=== PATIENT | female | born 1965 ===

== ENCOUNTER 2018-06-21 12:26 | Inpatient (IN) | payer OTHER ==
[2018-06-21 12:26] VITALS: BMI 39.9
[2018-06-21] MEDS ORDERED: Sodium Chloride 0.9% 1,000 ML IV STA ×2 (12:43→15:54)
[2018-06-21 13:34] LABS: BASO # 0.01 K/mm3 (0.0-2.0); BASO % 0.1 % (0.0-3.0); EOS % 0.4 % (1.5-5.0); GRAN # 8.28 (1.4-6.5); HEMOGLOBIN 14.5 g/dL (12.0-16.0); LYMPH # 0.8 (1.2-3.4); LYMPH % 8.3 % (22.0-35.0); MEAN CELL VOLUME 88.3 fl (80.0-105.0); MEAN CORPUSCULAR HEMOGLOBIN 30.3 pg (25.0-35.0); MEAN CORPUSCULAR HGB CONC 34.3 g/dl (31.0-37.0); MEAN PLATELET VOLUME 8.8 fl (7.0-11.0); MONO # 0.7 (0.1-0.6); MONO % 7.2 % (1.0-6.0); RBC 4.79 10^6/uL (3.5-6.1); RED CELL DISTRIBUTION WIDTH 13.3 % (11.5-14.5); WHITE BLOOD COUNT 9.9 10^3/uL (4.5-11.0)
[2018-06-21 13:35] LABS: VENOUS BLOOD GAS BASE EXCESS 2.8 mmol/L (0.0-2.0); VENOUS BLOOD GAS PO2 69 mm/Hg (30-55); VENOUS BLOOD PH 7.44 (7.32-7.43)
[2018-06-21 13:44] LABS: ALB/GLOB RATIO 1.2 (1.1-1.8); ALBUMIN 4.3 g/dL (3.0-4.8); BLOOD UREA NITROGEN 13 mg/dL (7-21); GFR NON-AFRICAN AMERICAN > 60; LIPASE 78 U/L (23-300)
[2018-06-21 13:47] LABS: ALT/SGPT 48 U/L (7-56); AST/SGOT 38 U/L (14-36)
[2018-06-21 14:02] LABS: TROPONIN I < 0.01 ng/mL
--- NOTE | 2018-06-21 14:51 | CT ---
Date of service: 06/21/2018 PROCEDURE: CT Abdomen and Pelvis with contrast HISTORY: abd pain COMPARISON: Comparison is made with 01/21/2013 TECHNIQUE: Contrast dose: 150 mL of Omnipaque 350 intravenously. Axial and reformatted coronal and sagittal CT images of the abdomen and pelvis were obtained after IV contrast administration. Radiation dose: Total exam DLP = 1064.8 mGy-cm. This CT exam was performed using one or more of the following dose reduction techniques: Automated exposure control, adjustment of the mA and/or kV according to patient size, and/or use of iterative reconstruction technique. FINDINGS: LOWER THORAX: No evidence of acute pathology at the lung bases. LIVER: Hepatomegaly with findings suggestive of [id number] hepatic steatosis. GALLBLADDER AND BILE DUCTS: No evidence of acute cholecystitis or radiodense gallstones. PANCREAS: Unremarkable. No gross lesion or ductal dilatation. SPLEEN: The spleen is prominent in size measures up to 12.4 centimeter. ADRENALS: Unremarkable. No mass. KIDNEYS AND URETERS: Unremarkable. No hydronephrosis. No solid mass. VASCULATURE: Unremarkable. No aortic aneurysm. No aortic atherosclerotic calcification or mural plaque present. BOWEL: Suspicious for cecal and ascending colon wall thickening. Correlate clinically for colitis. No evidence of high-grade bowel obstruction. APPENDIX: No evidence of appendicitis. PERITONEUM: Unremarkable. No free fluid. No free air. LYMPH NODES: Mildly enlarged mesenteric lymph node in the upper abdomen. BLADDER: Unremarkable. REPRODUCTIVE: The patient is likely status post partial hysterectomy. BONES: No acute fracture. OTHER FINDINGS: None. IMPRESSION: Suspicious for right colon wall thickening. Correlate clinically for colitis. No CT evidence of cholecystitis pancreatitis or appendicitis. Prominent upper abdomen lymph nodes.
[2018-06-21 15:02] LABS: PH,URINE 6.5 (4.7-8.0); URINE APPEARANCE CLEAR (CLEAR); URINE BILIRUBIN NEGATIVE (NEGATIVE); URINE BLOOD SMALL (NEGATIVE); URINE COLOR LIGHT YELLOW (YELLOW); URINE GLUCOSE (UA) NEGATIVE (NEGATIVE); URINE LEUKOCYTE ESTERASE NEGATIVE Leu/uL (NEGATIVE); URINE PROTEIN NEGATIVE mg/dL (<30 mg/dL); URINE UROBILINOGEN 0.2 E.U./dL (<1 E.U./dL)
[2018-06-21 15:11] LABS: URINE RBC 0 - 2 /hpf (0-2); URINE WBC NEGATIVE /hpf (0-6)
--- NOTE | 2018-06-21 15:26 | ED PDOC ---
Arrival/HPI - General Chief Complaint: Abdominal Pain Time Seen by Provider: 06/21/18 12:28 Historian: Patient - History of Present Illness Narrative History of Present Illness (Text): 06/21/18 15:24 52-year-old female presents today with severe right-sided abdominal pain that started around 5:30 in the morning. Patient states she's had multiple episodes of diarrhea. She is complaining of fevers body aches and chills. She denies cough. No chest pain or shortness of breath. Patient is complaining of headache. No medications have been taken at home. Patient denies any sick contacts. Patient states she recently returned from [facility]. No other complaints Time/Duration: Other (530am) Symptom Onset: Sudden Symptom Course: Unchanged Quality: Aching, Stabbing Severity Level: Severe Past Medical History - Provider Review Nursing Documentation Reviewed: Yes - Travel History Have you recently traveled outside [place] w/in the past 3 mons?: No - Tetanus Immunization Tetanus Immunization: Unknown - Past Medical History Past Medical History: No Previous - Cardiac Hx Hypertension: Yes Hx Peripheral Edema: Yes (+1 ble x 1 yr) - Pulmonary Hx Asthma: Yes Hx Bronchitis: Yes - Neurological Hx Neurological Disorder: No - HEENT Hx HEENT Disorder: Yes (wears eyeglasses) - Renal Hx Renal Disorder: No - Endocrine/Metabolic Hx Endocrine Disorders: No - Hematological/Oncological Hx Cancer: Yes (cervical ca dx 20 yrs ago) - Integumentary Hx Dermatological Disorder: No - Musculoskeletal/Rheumatological Hx Falls: No - Gastrointestinal Hx Gastroesophageal Reflux: Yes (gastritis) - Genitourinary/Gynecological Other/Comment: s/p hysterectomy, c section - Psychiatric Hx Depression: No Hx Emotional Abuse: No Hx Physical Abuse: No Hx Substance Use: No - Surgical History Hx Hysterectomy: Yes Other/Comment: scraping of cervix 20 yrs ago due to cervical ca - Anesthesia Hx Anesthesia Reactions: No Hx Malignant Hyperthermia: No - Suicidal Assessment Feels Threatened In Home Enviroment: No Family/Social History - Physician Review Nursing Documentation Reviewed: Yes Family/Social History: Unknown Family HX Smoking Status: Former Smoker Hx Alcohol Use: No Hx Substance Use: No Hx Substance Use Treatment: No Allergies/Home Meds Allergies/Adverse Reactions: Allergies aspirin Adverse Reaction (Verified 06/21/18 12:35) ANGIOEDEMA Home Medications: Home Meds Medication Instructions Recorded Confirmed Desloratadine [Clarinex] 5 mg PO DAILY 04/10/15 04/10/15 Hydrochlorothiazide 12.5 mg PO DAILY 04/10/15 04/10/15 Methylprednisolone [Medrol Dose 1 tab PO DAILY 04/10/15 04/10/15 Pack (21 tabs)] Mometasone/Formoterol [Dulera] 2 puff NEB BID 04/10/15 04/10/15 Rosuvastatin Calcium [Crestor] 10 mg PO DAILY 04/10/15 04/10/15 Review of Systems - Review of Systems Constitutional: Fatigue, Fevers ENT: absent: Sore Throat, Sinus Congestion Respiratory: absent: SOB, Cough Cardiovascular: absent: Chest Pain, Palpitations Gastrointestinal: Abdominal Pain, Diarrhea, Nausea, Appetite Changes. absent: Constipation, Vomiting Genitourinary Female: absent: Dysuria, Frequency, Hematuria Musculoskeletal: absent: Arthralgias, Back Pain, Neck Pain Skin: absent: Rash, Pruritis Neurological: absent: Headache, Dizziness Psychiatric: absent: Anxiety, Depression Physical Exam Vital Signs Reviewed: Yes Vital Signs Temp Pulse Resp BP Pulse Ox 06/21/18 12:33 102.4 F H 120 H 18 144/100 H 95 Temperature: Febrile Blood Pressure: Hypertensive Pulse: Tachycardic Respiratory Rate: Normal Appearance: Positive for: Well-Appearing, Non-Toxic, Comfortable Pain Distress: Mild Mental Status: Positive for: Alert and Oriented X 3 - Systems Exam Head: Present: Atraumatic Mouth: Present: Moist Mucous Membranes Neck: Present: Normal Range of Motion Respiratory/Chest: Present: Clear to Auscultation, Good Air Exchange. No: Respiratory Distress, Accessory Muscle Use Cardiovascular: Present: Regular Rate and Rhythm, Normal S1, S2. No: Murmurs Abdomen: Present: Tenderness (diffuse tenderness, greatest on right side), Guarding. No: Distention, Peritoneal Signs, Rebound Back: Present: Normal Inspection. No: CVA Tenderness Upper Extremity: Present: Normal ROM Lower Extremity: Present: Normal ROM Neurological: Present: GCS=15, Speech Normal Skin: Present: Warm, Dry, Normal Color. No: Rashes Psychiatric: Present: Alert, Oriented x 3 Medical Decision Making ED Course and Treatment: 06/21/18 15:32 Patient is nontoxic well appearing with stable vital signs presenting with severe abdominal pain CBC: wbc; 9.9 CMP wnl Lipase wnl Urinalysis: CAT scan: FINDINGS: LOWER THORAX: No evidence of acute pathology at the lung bases. LIVER: Hepatomegaly with findings suggestive of [id number] hepatic steatosis. GALLBLADDER AND BILE DUCTS: No evidence of acute cholecystitis or radiodense gallstones. PANCREAS: Unremarkable. No gross lesion or ductal dilatation. SPLEEN: The spleen is prominent in size measures up to 12.4 centimeter. ADRENALS: Unremarkable. No mass. KIDNEYS AND URETERS: Unremarkable. No hydronephrosis. No solid mass. VASCULATURE: Unremarkable. No aortic aneurysm. No aortic atherosclerotic calcification or mural plaque present. BOWEL: Suspicious for cecal and ascending colon wall thickening. Correlate clinically for colitis. No evidence of high-grade bowel obstruction. APPENDIX: No evidence of appendicitis. PERITONEUM: Unremarkable. No free fluid. No free air. LYMPH NODES: Mildly enlarged mesenteric lymph node in the upper abdomen. BLADDER: Unremarkable. REPRODUCTIVE: The patient is likely status post partial hysterectomy. BONES: No acute fracture. OTHER FINDINGS: None. IMPRESSION: Suspicious for right colon wall thickening. Correlate clinically for colitis. No CT evidence of cholecystitis pancreatitis or appendicitis. Prominent upper abdomen lymph nodes. Patient reassessment: pt feeling better after medications, still c/o slight abdominal pain. pt started on rocephin and flagy. Discussed all results with patient in depth pt is requesting dr. sparks, Case discussed with Dr. Sparks accepts admission for colitis and fever. she adv ised consult surgery and GI. pt would like dr. morgan and Dr. Ahuja Impression: colitis, fever admit Reassessment Condition: Re-examined, Improved - Lab Interpretations Lab Results: 06/21/18 13:10 06/21/18 13:10 Lab Results 06/21/18 14:55: Urine Color Light yellow, Urine Appearance Clear, Urine pH 6.5, Ur Specific [place] <= 1.005, Urine Protein Negative, Urine Glucose (UA) Negative, Urine Ketones Negative, Urine Blood Small H, Urine Nitrate Negative, Urine Bilirubin Negative, Urine Urobilinogen 0.2, Ur Leukocyte Esterase Negative, Urine RBC 0 - 2, Urine WBC Negative, Ur Epithelial Cells None 06/21/18 13:20: Influenza Typ A,B (EIA) Negative for flu a/b 06/21/18 13:10: pO2 69 H, VBG pH 7.44 H, VBG pCO2 40.0, VBG HCO3 27.2, VBG Total CO2 28.4 H, VBG O2 Sat (Calc) 95.9 H, VBG Base Excess 2.8 H, VBG Potassium 3.7, Sodium 139.0, Chloride 103.0, Glucose 104, Lactate 1.5, FiO2 21.0, Venous Blood Potassium 3.7 06/21/18 13:10: WBC 9.9, RBC 4.79, Hgb 14.5, Hct 42.3, MCV 88.3, MCH 30.3, MCHC 34.3, RDW 13.3, Plt Count 262, MPV 8.8, Gran % 84.0 H, Lymph % (Auto) 8.3 L, [place] % (Auto) 7.2 H, Eos % (Auto) 0.4 L, Baso % (Auto) 0.1, Gran # 8.28 H, Lymph # (Auto) 0.8 L, [place] # (Auto) 0.7 H, Eos # (Auto) 0.0, Baso # (Auto) 0.01 06/21/18 13:10: Sodium 138, Chloride 104, Potassium 3.9, Carbon Dioxide 26, Anion Gap 12, BUN 13, Creatinine 0.7, Est GFR ( Amer) > 60, Est GFR (Non- Af Amer) > 60, Random Glucose 105, Calcium 9.0, Total Bilirubin 0.6, AST 38 H, ALT 48, Alkaline Phosphatase 69, Lactate Dehydrogenase 642, Total Creatine Kinase 104, Troponin I < 0.01, Total Protein 8.0, Albumin 4.3, Globulin 3.6, Albumin/Globulin Ratio 1.2, Lipase 78 - RAD Interpretation Radiology Orders: 06/21/18 12:43 CHEST PORTABLE [RAD] Stat 06/21/18 12:44 ABD & PELVIS IV CONTRAST ONLY [CT] Stat - Medication Orders Current Medication Orders: Discontinued Medications Acetaminophen (Tylenol 325mg Tab) 975 mg PO STAT STA Stop: 06/21/18 12:44 Last Admin: 06/21/18 13:10 Dose: 975 mg MAR Pain/Vitals Document 06/21/18 13:10 SRE (Rec: 06/21/18 13:11 SRE [id number]) Pain Reassessment Is This A Pain ReAssessment? Yes Sodium Chloride (Sodium Chloride 0.9%) 1,000 mls @ 999 mls/hr IV .Q1H1M STA Stop: 06/21/18 13:43 Last Admin: 06/21/18 13:11 Dose: 999 mls/hr eMAR Start Stop Document 06/21/18 13:11 SRE (Rec: 06/21/18 13:12 SRE [id number]) Intravenous Solution Start Date 06/21/18 Start Time 13:00 End Date 06/21/18 End time 14:00 Total Infusion Time 60 Disposition/Present on Arrival - Present on Arrival Any Indicators Present on Arrival: No History of DVT/PE: No History of Uncontrolled Diabetes: No Urinary Catheter: No History of Decub. Ulcer: No History Surgical Site Infection Following: None - Disposition Have Diagnosis and Disposition been Completed?: Yes Diagnosis: Colitis, Fever Disposition: HOSPITALIZED Disposition Time: 15:00 Patient Plan: Observation Patient Problems: Current Active Problems Problem Status Onset Colitis Acute Fever Acute Condition: FAIR
[2018-06-21] MEDS ORDERED: cefTRIAXone 1 gm 1 GM/100 ML BAG IVPB STA (15:37)
[2018-06-21] MEDS ORDERED: metroNIDAZOLE IV 500 mg/100 ml 500 MG/100 ML BAG IVPB STA (15:37)
[2018-06-21] MEDS ORDERED: Morphine 2 mg/ml ISec IVP STA ×2 (15:54→18:20)
--- NOTE | 2018-06-21 16:44 | RAD ---
Date of service: 06/21/2018 HISTORY: Abdominal pain and fever COMPARISON: 04/10/2015. FINDINGS: LUNGS: No active pulmonary disease. PLEURA: No significant pleural effusion identified, no pneumothorax apparent. CARDIOVASCULAR: No atherosclerotic calcification present No radiographic findings to suggest acute or significant cardiovascular disease. OSSEOUS STRUCTURES: No significant abnormalities. VISUALIZED UPPER ABDOMEN: Normal. OTHER FINDINGS: None. IMPRESSION: No active disease. No significant interval change compared to the prior examination(s).
--- NOTE | 2018-06-21 18:43 | CARD ---
APPROVED REPORT Date of service: 06/21/2018 EKG Measurement Heart [id number] CT [id number] <Conclusion> Sinus tachycardia Otherwise normal ECG
[2018-06-21] MEDS ORDERED: Morphine 2 mg/ml ISec IVP PRN (19:35)
[2018-06-21] MEDS ORDERED: Dextrose 5%/0.45% NS 1,000 ML IV SCH (19:45)
--- NOTE | 2018-06-21 20:26 | CP.PCM.CON ---
History of Present Illness - History of Present Illness History of Present Illness: General Surgery consult note for Dr. Baron Consulted for: colitis Pt is a 52F with PMH of HTN and H. pylori PUD treated previously who presented to the ER for crampy abdominal pain that started this AM around 5 AM. Pain is in her epigastrium and haley-umbilical, constant, and only improved with morphine and zofran in the ER. Patient states that she has nausea but no vomiting, has had numerous episodes of water, foul smelling diarrhea, and poor PO intake. Patient has lower back pain. Patient has had subjective fevers and chills at home and a measured temperature of 102 in the ER, resolved now. Patient denies any hematochezia, melena, dysuria, hematuria, chest pain, SOB, or any other symptoms. Patient admits to eating a taco from a vendor representatives 2 days ago and a tuna sandwich yesterday. She denies any prior episodes, no family history of GI issues except a sister who also had PUD. PMH: HTN, PUD w/H. pylor PSH: tubal ligation, hysterectomy, colon polyps removed endoscopically ALL: ASA Social: prior occasional smoking tobacco, prior ETOH use--both quit 25 years ago, no drug use Review of Systems - Review of Systems All systems: reviewed and no additional remarkable complaints except (as per HPI) Past Patient History - Tetanus Immunizations Tetanus Immunization: Unknown - Past Medical History & Family History Past Medical History?: Yes Past Family History: Reviewed and not pertinent - Past Social History Smoking Status: Former Smoker Alcohol: None Drugs: Denies - CARDIAC Hx Hypertension: Yes Hx Peripheral Edema: Yes (+1 ble x 1 yr) - PULMONARY Hx Asthma: Yes Hx Bronchitis: Yes - NEUROLOGICAL Hx Neurological Disorder: No - HEENT Hx HEENT Problems: Yes (wears eyeglasses) - RENAL Hx Chronic Kidney Disease: No - ENDOCRINE/METABOLIC Hx Endocrine Disorders: No - HEMATOLOGICAL/ONCOLOGICAL Hx Cancer: Yes (cervical ca dx 20 yrs ago) - INTEGUMENTARY Hx Dermatological Problems: No - MUSCULOSKELETAL/RHEUMATOLOGICAL Hx Falls: No - GASTROINTESTINAL Hx Gastrointestinal Disorders: Yes Hx Gastroesophageal Reflux: Yes (gastritis) - GENITOURINARY/GYNECOLOGICAL Other/Comment: s/p hysterectomy, c section - PSYCHIATRIC Hx Depression: No Hx Emotional Abuse: No Hx Physical Abuse: No Hx Substance Use: No - SURGICAL HISTORY Hx Hysterectomy: Yes Hx Tubal Ligation: Yes Other/Comment: scraping of cervix 20 yrs ago due to cervical ca - ANESTHESIA Hx Anesthesia Reactions: No Hx Malignant Hyperthermia: No Meds Allergies/Adverse Reactions: Allergies Allergy/AdvReac Type Severity Reaction Status Date / Time aspirin AdvReac ANGIOEDEMA Verified 06/21/18 12:35 - Medications Medications: Current Medications Acetaminophen (Tylenol 325mg Tab) 650 mg PO Q6H PRN PRN Reason: Fever >100.4 F Dextrose/Sodium Chloride (Dextrose 5%/0.45% Ns 1000 Ml) 1,000 mls @ 100 mls/hr IV .Q10H CAROL Metronidazole (Flagyl) 500 mg in 100 mls @ 100 mls/hr IVPB Q8 CAROL; Protocol Ceftriaxone Sodium (Rocephin 1 Gram Ivpb) 1 gm in 100 mls @ 100 mls/hr IVPB DAILY CAROL; Protocol Morphine Sulfate (Morphine) 2 mg IVP Q4H PRN PRN Reason: Pain, moderate (4-7) Pantoprazole Sodium (Protonix Inj) 40 mg IVP DAILY CAROL Physical Exam - Constitutional Appears: Well, Non-toxic, No Acute Distress - Head Exam Head Exam: ATRAUMATIC, NORMOCEPHALIC - Eye Exam Eye Exam: Normal appearance. absent: Conjunctival injection, Scleral icterus - ENT Exam ENT Exam: Mucous Membranes Moist, Normal Oropharynx - Respiratory Exam Respiratory Exam: NORMAL BREATHING PATTERN. absent: Accessory Muscle Use, Respiratory Distress - Cardiovascular Exam Cardiovascular Exam: RRR - GI/Abdominal Exam GI & Abdominal Exam: Soft, Tenderness (moderate epigastric tenderness, mild RUQ, and LUQ tenderness to palpation). absent: Distended, Hernia, Rigid - Extremities Exam Extremities exam: Positive for: pedal edema (1+), pedal pulses present. Negative for: calf tenderness - Neurological Exam Neurological exam: Alert, Oriented x3 - Psychiatric Exam Psychiatric exam: Normal Affect, Normal Mood - Skin Skin Exam: Dry, Normal Color, Warm Results - Vital Signs Recent Vital Signs: Last Vital Signs Temp 100.1 F H 06/21/18 17:35 Pulse 90 06/21/18 17:35 Resp 18 06/21/18 17:35 BP 126/62 06/21/18 17:35 Pulse Ox 100 06/21/18 17:35 - Labs Result Diagrams: 06/21/18 13:10 06/21/18 13:10 Labs: Laboratory Results - last 24 hr 06/21/18 06/21/18 06/21/18 13:10 13:10 13:10 WBC 9.9 RBC 4.79 Hgb 14.5 Hct 42.3 MCV 88.3 MCH 30.3 MCHC 34.3 RDW 13.3 Plt Count 262 MPV 8.8 Gran % 84.0 H Lymph % (Auto) 8.3 L [place] % (Auto) 7.2 H Eos % (Auto) 0.4 L Baso % (Auto) 0.1 Gran # 8.28 H Lymph # (Auto) 0.8 L [place] # (Auto) 0.7 H Eos # (Auto) 0.0 Baso # (Auto) 0.01 pO2 69 H VBG pH 7.44 H VBG pCO2 40.0 VBG HCO3 27.2 VBG Total CO2 28.4 H VBG O2 Sat (Calc) 95.9 H VBG Base Excess 2.8 H VBG Potassium 3.7 Sodium 138 139.0 Chloride 104 103.0 Glucose 104 Lactate 1.5 FiO2 21.0 Potassium 3.9 Carbon Dioxide 26 Anion Gap 12 BUN 13 Creatinine 0.7 Est GFR ( Amer) > 60 Est GFR (Non-Af Amer) > 60 Random Glucose 105 Calcium 9.0 Total Bilirubin 0.6 AST 38 H ALT 48 Alkaline Phosphatase 69 Lactate Dehydrogenase 642 Total Creatine Kinase 104 Troponin I < 0.01 Total Protein 8.0 Albumin 4.3 Globulin 3.6 Albumin/Globulin Ratio 1.2 Lipase 78 Venous Blood Potassium 3.7 Urine Color Urine Appearance Urine pH Ur Specific [place] Urine Protein Urine Glucose (UA) Urine Ketones Urine Blood Urine Nitrate Urine Bilirubin Urine Urobilinogen Ur Leukocyte Esterase Urine RBC Urine WBC Ur Epithelial Cells Influenza Typ A,B (EIA) 06/21/18 06/21/18 13:20 14:55 WBC RBC Hgb Hct MCV MCH MCHC RDW Plt Count MPV Gran % Lymph % (Auto) [place] % (Auto) Eos % (Auto) Baso % (Auto) Gran # Lymph # (Auto) [place] # (Auto) Eos # (Auto) Baso # (Auto) pO2 VBG pH VBG pCO2 VBG HCO3 VBG Total CO2 VBG O2 Sat (Calc) VBG Base Excess VBG Potassium Sodium Chloride Glucose Lactate FiO2 Potassium Carbon Dioxide Anion Gap BUN Creatinine Est GFR ( Amer) Est GFR (Non-Af Amer) Random Glucose Calcium Total Bilirubin AST ALT Alkaline Phosphatase Lactate Dehydrogenase Total Creatine Kinase Troponin I Total Protein Albumin Globulin Albumin/Globulin Ratio Lipase Venous Blood Potassium Urine Color Light yellow Urine Appearance Clear Urine pH 6.5 Ur Specific [place] <= 1.005 Urine Protein Negative Urine Glucose (UA) Negative Urine Ketones Negative Urine Blood Small H Urine Nitrate Negative Urine Bilirubin Negative Urine Urobilinogen 0.2 Ur Leukocyte Esterase Negative Urine RBC 0 - 2 Urine WBC Negative Ur Epithelial Cells None Influenza Typ A,B (EIA) Negative for flu a/b - Imaging and Cardiology CT scan - abdomen Status: Image reviewed by me, Report reviewed by me Assessment & Plan - Assessment and Plan (Free Text) Assessment: 52F with abdominal pain: likely infectious colitis vs gastritis Plan: Trend labs Monitor for fevers PRN pain and nausea medication IVF Antibiotics per primary F/U GI recs No surgical intervention indicated at this time--will continue to monitor discussed with Dr. Seymour Marley, PGY2
[2018-06-21] MEDS: metroNIDAZOLE IV 500 mg/100 ml 500 MG/100 ML BAG IVPB SCH (21:11)
[2018-06-22] MEDS: Dextrose 5%/0.45% NS 1,000 ML IV SCH (05:30)
[2018-06-22] MEDS: metroNIDAZOLE IV 500 mg/100 ml 500 MG/100 ML BAG IVPB SCH ×3 (05:32→22:44)
[2018-06-22 07:52] LABS: BASO # 0.01 K/mm3 (0.0-2.0); BASO % 0.1 % (0.0-3.0); EOS % 0.3 % (1.5-5.0); GRAN # 5.13 (1.4-6.5); GRAN % 68.9 % (50.0-68.0); HEMOGLOBIN 13.3 g/dL (12.0-16.0); LYMPH # 1.5 (1.2-3.4); LYMPH % 20.1 % (22.0-35.0); MEAN CELL VOLUME 88.8 fl (80.0-105.0); MEAN CORPUSCULAR HEMOGLOBIN 29.8 pg (25.0-35.0); MEAN CORPUSCULAR HGB CONC 33.6 g/dl (31.0-37.0); MEAN PLATELET VOLUME 8.7 fl (7.0-11.0); MONO # 0.8 (0.1-0.6); MONO % 10.6 % (1.0-6.0); RBC 4.46 10^6/uL (3.5-6.1); RED CELL DISTRIBUTION WIDTH 13.6 % (11.5-14.5); WHITE BLOOD COUNT 7.5 10^3/uL (4.5-11.0)
[2018-06-22 08:06] LABS: ALB/GLOB RATIO 1.3 (1.1-1.8); ALT/SGPT 35 U/L (7-56); AST/SGOT 26 U/L (14-36); BLOOD UREA NITROGEN 8 mg/dL (7-21); CALCIUM 8.3 mg/dL (8.4-10.5); GFR NON-AFRICAN AMERICAN > 60
--- NOTE | 2018-06-22 08:36 | CP.PCM.PN ---
Subjective - Date & Time of Evaluation Date of Evaluation: 06/22/18 Time of Evaluation: 06:40 - Subjective Subjective: Surgery progress note for Dr. Ahuja Pt seen and examined this AM. Pt has persistent watery diarrhea overnight but significant improvement in pain Objective - Vital Signs/Intake and Output Vital Signs (last 24 hours): Temp Pulse Resp BP Pulse Ox 98.7 F 63 20 109/66 96 06/22/18 07:00 06/22/18 07:00 06/22/18 07:00 06/22/18 07:00 06/22/18 07:00 Intake and Output: 06/22/18 06/22/18 06:59 18:59 Intake Total 1200 Balance 1200 - Medications Medications: Current Medications Acetaminophen (Tylenol 325mg Tab) 650 mg PO Q6H PRN PRN Reason: Fever >100.4 F Last Admin: 06/21/18 21:10 Dose: 650 mg Metronidazole (Flagyl) 500 mg in 100 mls @ 100 mls/hr IVPB Q8 CAROL; Protocol Last Admin: 06/22/18 05:32 Dose: 100 mls/hr Ceftriaxone Sodium (Rocephin 1 Gram Ivpb) 1 gm in 100 mls @ 100 mls/hr IVPB DAILY CAROL; Protocol Dextrose/Sodium Chloride (Dextrose 5%/0.45% Ns 1000 Ml) 1,000 mls @ 150 mls/hr IV .Q6H40M CAROL Last Admin: 06/22/18 05:30 Dose: 150 mls/hr Potassium Chloride (Potassium Chloride 10 Meq/100 Ml) 10 meq in 100 mls @ 50 mls/hr IVPB Q2H CAROL Stop: 06/22/18 12:44 Potassium Chloride (Potassium Chloride 10 Meq/100 Ml) 10 meq in 100 mls @ 50 mls/hr IVPB Q2H CAROL Stop: 06/22/18 14:44 Morphine Sulfate (Morphine) 2 mg IVP Q4H PRN PRN Reason: Pain, moderate (4-7) Pantoprazole Sodium (Protonix Inj) 40 mg IVP DAILY CAROL - Labs Labs: 06/22/18 07:00 06/22/18 07:00 - Constitutional Appears: Well, Non-toxic, No Acute Distress - Head Exam Head Exam: ATRAUMATIC, NORMOCEPHALIC - Eye Exam Eye Exam: Normal appearance. absent: Conjunctival injection, Scleral icterus - ENT Exam ENT Exam: Mucous Membranes Moist, Normal Oropharynx - Respiratory Exam Respiratory Exam: NORMAL BREATHING PATTERN. absent: Accessory Muscle Use, Respiratory Distress - Cardiovascular Exam Cardiovascular Exam: RRR - GI/Abdominal Exam GI & Abdominal Exam: Soft, Tenderness (epigastrium and RUQ/LUQ). absent: Distended, Guarding, Rebound - Extremities Exam Extremities Exam: absent: Calf Tenderness, Pedal Edema - Neurological Exam Neurological Exam: Alert, Awake, Oriented x3 - Psychiatric Exam Psychiatric exam: Normal Affect, Normal Mood - Skin Skin Exam: Dry, Normal Color, Warm Assessment and Plan - Assessment and Plan (Free Text) Assessment: 52F with diarrhea and abdominal pain Plan: F/U GI and ID recs Continue current medical management PRN nausea and pain medication Continue protonix for history of PUD Continue antibiotics Continue IVF Advance diet per GI Discussed with Dr. Seymour Marley PGY2
[2018-06-22] MEDS: cefTRIAXone 1 gm 1 GM/100 ML BAG IVPB SCH (09:40)
--- NOTE | 2018-06-22 11:52 | CP.PCM.CON ---
History of Present Illness - History of Present Illness History of Present Illness: 52 year old female with PMH of HTN, peptic ulcer disease with H. pylori, morbid obesity with BMI 40, S/P tubal ligation, S/P hysterectomy came in to [facility] [place] complaining of crampy abdominal pain for the past 1-2 days, associated with nausea and watery diarrhea. She denies chest pain, no SOB, no headache but has some lightheadedness, no cough or rhinorrhea, no sore throat, no dysuria. She also had fevers and it was measured as [address] scan of the abdomen and pelvis is showing right sided colitis. 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 Infectious diseases consult is requested to further evaluate and manage. Review of Systems - Review of Systems All systems: reviewed and no additional remarkable complaints except (as per HPI) Past Patient History - Tetanus Immunizations Tetanus Immunization: Unknown - Past Medical History & Family History Past Medical History?: Yes Past Family History: Reviewed and not pertinent - Past Social History Smoking Status: Former Smoker - CARDIAC Hx Hypertension: Yes Hx Peripheral Edema: Yes (+1 ble x 1 yr) - PULMONARY Hx Asthma: Yes Hx Bronchitis: Yes - NEUROLOGICAL Hx Neurological Disorder: No - HEENT Hx HEENT Problems: Yes (wears eyeglasses) - RENAL Hx Chronic Kidney Disease: No - ENDOCRINE/METABOLIC Hx Endocrine Disorders: No - HEMATOLOGICAL/ONCOLOGICAL Hx Cancer: Yes (cervical ca dx 20 yrs ago) - INTEGUMENTARY Hx Dermatological Problems: No - MUSCULOSKELETAL/RHEUMATOLOGICAL Hx Falls: No - GASTROINTESTINAL Hx Gastrointestinal Disorders: Yes Hx Gastroesophageal Reflux: Yes (gastritis) - GENITOURINARY/GYNECOLOGICAL Other/Comment: s/p hysterectomy, c section - PSYCHIATRIC Hx Depression: No Hx Emotional Abuse: No Hx Physical Abuse: No Hx Substance Use: No - SURGICAL HISTORY Hx Hysterectomy: Yes Other/Comment: scraping of cervix 20 yrs ago due to cervical ca - ANESTHESIA Hx Anesthesia Reactions: No Hx Malignant Hyperthermia: No Meds Allergies/Adverse Reactions: Allergies Allergy/AdvReac Type Severity Reaction Status Date / Time aspirin AdvReac ANGIOEDEMA Verified 06/21/18 12:35 - Medications Medications: Current Medications Acetaminophen (Tylenol 325mg Tab) 650 mg PO Q6H PRN PRN Reason: Fever >100.4 F Last Admin: 06/21/18 21:10 Dose: 650 mg Metronidazole (Flagyl) 500 mg in 100 mls @ 100 mls/hr IVPB Q8 [facility]; Protocol Last Admin: 06/22/18 05:32 Dose: 100 mls/hr Ceftriaxone Sodium (Rocephin 1 Gram Ivpb) 1 gm in 100 mls @ 100 mls/hr IVPB DAILY [facility]; Protocol Dextrose/Sodium Chloride (Dextrose 5%/0.45% Ns 1000 Ml) 1,000 mls @ 150 mls/hr IV .Q6H40M [facility] Last Admin: 06/22/18 05:30 Dose: 150 mls/hr Morphine Sulfate (Morphine) 2 mg IVP Q4H PRN PRN Reason: Pain, moderate (4-7) Pantoprazole Sodium (Protonix Inj) 40 mg IVP DAILY [facility] Physical Exam - Constitutional Appears: Non-toxic, No Acute Distress - Head Exam Head Exam: NORMAL INSPECTION - Neck Exam Neck exam: Negative for: Meningismus - Respiratory Exam Respiratory Exam: Decreased Breath Sounds. absent: Rales - Cardiovascular Exam Cardiovascular Exam: +S1, +S2 - GI/Abdominal Exam GI & Abdominal Exam: Soft, Tenderness (mild, right sided). absent: Distended, Firm, Guarding, Rebound, Rigid Results - Vital Signs Recent Vital Signs: Last Vital Signs Temp 98.8 F 06/21/18 23:24 Pulse 90 06/21/18 17:35 Resp 20 06/22/18 00:42 BP 126/62 06/21/18 17:35 Pulse Ox 100 06/21/18 17:35 - Labs Result Diagrams: 06/22/18 07:00 06/22/18 07:00 Labs: Laboratory Results - last 24 hr 06/21/18 06/21/18 06/21/18 13:10 13:10 13:10 WBC 9.9 RBC 4.79 Hgb 14.5 Hct 42.3 MCV 88.3 MCH 30.3 MCHC 34.3 RDW 13.3 Plt Count 262 MPV 8.8 Gran % 84.0 H Lymph % (Auto) 8.3 L Midland % (Auto) 7.2 H Eos % (Auto) 0.4 L Baso % (Auto) 0.1 Gran # 8.28 H Lymph # (Auto) 0.8 L Mid[place] # (Auto) 0.7 H Eos # (Auto) 0.0 Baso # (Auto) 0.01 pO2 69 H VBG pH 7.44 H VBG pCO2 40.0 VBG HCO3 27.2 VBG Total CO2 28.4 H VBG O2 Sat (Calc) 95.9 H VBG Base Excess 2.8 H VBG Potassium 3.7 Sodium 138 139.0 Chloride 104 103.0 Glucose 104 Lactate 1.5 FiO2 21.0 Potassium 3.9 Carbon Dioxide 26 Anion Gap 12 BUN 13 Creatinine 0.7 Est GFR ( Amer) > 60 Est GFR (Non-Af Amer) > 60 Random Glucose 105 Calcium 9.0 Total Bilirubin 0.6 AST 38 H ALT 48 Alkaline Phosphatase 69 Lactate Dehydrogenase 642 Total Creatine Kinase 104 Troponin I < 0.01 Total Protein 8.0 Albumin 4.3 Globulin 3.6 Albumin/Globulin Ratio 1.2 Lipase 78 Venous Blood Potassium 3.7 Urine Color Urine Appearance Urine pH Ur Specific Robards Urine Protein Urine Glucose (UA) Urine Ketones Urine Blood Urine Nitrate Urine Bilirubin Urine Urobilinogen Ur Leukocyte Esterase Urine RBC Urine WBC Ur Epithelial Cells Influenza Typ A,B (EIA) 06/21/18 06/21/18 13:20 14:55 WBC RBC Hgb Hct MCV MCH MCHC RDW Plt Count MPV Gran % Lymph % (Auto) [place] % (Auto) Eos % (Auto) Baso % (Auto) Gran # Lymph # (Auto) Mid[place] # (Auto) Eos # (Auto) Baso # (Auto) pO2 VBG pH VBG pCO2 VBG HCO3 VBG Total CO2 VBG O2 Sat (Calc) VBG Base Excess VBG Potassium Sodium Chloride Glucose Lactate FiO2 Potassium Carbon Dioxide Anion Gap BUN Creatinine Est GFR ( Amer) Est GFR (Non-Af Amer) Random Glucose Calcium Total Bilirubin AST ALT Alkaline Phosphatase Lactate Dehydrogenase Total Creatine Kinase Troponin I Total Protein Albumin Globulin Albumin/Globulin Ratio Lipase Venous Blood Potassium Urine Color Light yellow Urine Appearance Clear Urine pH 6.5 Ur Specific Robards <= 1.005 Urine Protein Negative Urine Glucose (UA) Negative Urine Ketones Negative Urine Blood Small H Urine Nitrate Negative Urine Bilirubin Negative Urine Urobilinogen 0.2 Ur Leukocyte Esterase Negative Urine RBC 0 - 2 Urine WBC Negative Ur Epithelial Cells None Influenza Typ A,B (EIA) Negative for flu a/b Assessment & Plan - Assessment and Plan (Free Text) Plan: Assessment right sided acute colitis, probably infections, consider bacterial etiology (ie. Salmonella), R/O C. diff. colitis HTN peptic ulcer disease with H. pylori morbid obesity with BMI 40 S/P tubal ligation S/P hysterectomy Plan Started Rocephin and Flagyl and will follow up blood cx, stool cx, stool leukocytes, stool for C. diff. will monitor clinically will get HIV test due to her age
--- NOTE | 2018-06-22 12:02 | CON ---
DATE OF CONSULTATION: 06/22/2018 HISTORY OF PRESENT ILLNESS: I saw the patient this morning. She is a 52-year-old female who presented with severe right-sided abdominal pain with diarrhea. She had increase in intensity after return from [facility]. The patient noted some fevers, body aches, chills, but there was no hematemesis, rectal bleeding, cough, chest pain, etc. The patient indicates that when she was in [facility], she ate and drank hotel food except for in the airport where something from local vendors was consumed. The patient did very well for about a day and a half or so, then subsequently symptoms started after return and increased in intensity over the past couple of days. PHYSICAL EXAMINATION: VITAL SIGNS: I reviewed this patient's vital signs. HEENT: Noncontributory except for dry mouth. LUNGS: Clear to auscultation at the apex. Decreased breath sounds basilar. HEART: Irregular rhythm. ABDOMEN: Soft. Tender in the epigastric area and left upper quadrant. Abdomen is not distended. Right lower quadrant noncontributory as well as periumbilical area. DIAGNOSTIC DATA: I reviewed this patient's laboratory data. Also reviewed this patient's imaging studies. The abdomen and pelvic CT scan is significant for cortical right colon wall thickening, otherwise noncontributory. Chest x-ray was performed indicating no active disease. I reviewed the consult from the surgical service, which indicates no surgical intervention at this particular time. LABORATORY DATA: Significant for white count of 10,000 with H and H 14 and 42. Chemistries for the most part are noncontributory as well as the urine. Serology was negative for influenza. There are no micro specimens. ASSESSMENT AND PLAN: This is a 52-year-old female admitted with complaints of severe abdominal pain, which increased in intensity over the couple of days after returning from [facility]. Based on physical exam this morning, the patient has more pain in the epigastric area and her left upper quadrant than in the periumbilical area. This could be suggestive of a gastroenteritis/+/- traverlers diarrhea with some degree of gastroesophageal reflux disease, gastritis, and if so, it will probably resolve over the next day or so with conservative treatment. The patient reports that the pain level at the current time point at the bedside is roughly about 3-4/10. Review of the patient's orders indicate that she is currently on IV fluids as well as ceftriaxone and metronidazole. The patient indicates a substantial decrease in symptoms with this combination. We would maintain the same including pantoprazole and also emphasize antireflux precautions for this patient. Based on physical exam, the patient does not appear to have an extremely active degree of colitis since the area is soft, there is no thick wall colon, and there is no evidence of any kind of rectal bleeding or severe diarrhea. Note that the nurse did not see any diarrhea during the evening shift. The patient will be followed up by Dr. Sparks later on this morning. Yunior Bravo DO, PhD MTDChelsie
--- NOTE | 2018-06-22 21:00 | PN ---
DATE: 06/22/2018 SUBJECTIVE: The patient is a 52-year-old, seen and examined. She states her abdominal pain is at least 50% better, had multiple episode of diarrhea. Complained of rectal discomfort. Requesting for suppository. No history of nausea. PHYSICAL EXAMINATION VITAL SIGNS: She is afebrile, pulse 63, respirations 20, blood pressure 109/66. LUNGS: Bilateral fair airflow. No rhonchi or crackle. HEART: S1, S2 audible. ABDOMEN: Soft, nontender. No rebound. Slight epigastric and right upper quadrant discomfort. NEUROLOGICAL: The patient is awake, alert, oriented, and communicative. LABORATORY EXAMINATION: Sodium 139, potassium 3.1, chloride 106, CO2 of 24, BUN 8, creatinine 0.7, blood sugar of 97. Urinalysis is unremarkable. Flu test is negative. ASSESSMENT AND PLAN: 1. Segmental colitis. 2. Hypokalemia. 3. Gastroenteritis, probably the patient recently visited and does admit eating the street food. PLAN: We will continue the patient on IV fluids and IV antibiotic. She stays on clear liquid diet and will request for Anusol-HC suppository and also request for Anusol cream. Potassium is supplemented. We will follow up the patient in a.m. Kesha Sparks MD
[2018-06-23] MEDS: Dextrose 5%/0.45% NS 1,000 ML IV SCH ×2 (02:43→20:43)
[2018-06-23] MEDS: metroNIDAZOLE IV 500 mg/100 ml 500 MG/100 ML BAG IVPB SCH ×3 (05:12→21:41)
[2018-06-23] MEDS: Hydrocortisone 2.5% Rectal Cream(30 gm) PR SCH ×3 (10:00→17:35)
[2018-06-23] MEDS: cefTRIAXone 1 gm 1 GM/100 ML BAG IVPB SCH (10:21)
--- NOTE | 2018-06-23 10:34 | CP.PCM.PN ---
Subjective - Date & Time of Evaluation Date of Evaluation: 06/23/18 Time of Evaluation: 07:00 - Subjective Subjective: General surgery progress note for Dr. Ahuja Patient seen and examined this am at bedside. BARBARA per nursing. Patient states her pain is much improved and sh has had fewer loose BM overnight. She otherwise denies ATWOOD, CP, SOB, F/C, N/V and extremity pain/weakness. Objective - Vital Signs/Intake and Output Vital Signs (last 24 hours): Temp Pulse Resp BP Pulse Ox 98.3 F 74 20 103/71 98 06/23/18 08:29 06/23/18 08:29 06/23/18 08:29 06/23/18 08:29 06/23/18 08:29 - Medications Medications: Current Medications Acetaminophen (Tylenol 325mg Tab) 650 mg PO Q6H PRN PRN Reason: Fever >100.4 F Last Admin: 06/21/18 21:10 Dose: 650 mg Hydrocortisone (Anusol-Hc) 0 gm SD BID [facility] Hydrocortisone (Anusol-Hc) 25 mg RC Q12 [facility] Last Admin: 06/23/18 10:31 Dose: 25 mg Metronidazole (Flagyl) 500 mg in 100 mls @ 100 mls/hr IVPB Q8 [facility]; Protocol Last Admin: 06/23/18 05:12 Dose: 100 mls/hr Ceftriaxone Sodium (Rocephin 1 Gram Ivpb) 1 gm in 100 mls @ 100 mls/hr IVPB DAILY [facility]; Protocol Last Admin: 06/23/18 10:21 Dose: 100 mls/hr Dextrose/Sodium Chloride (Dextrose 5%/0.45% Ns 1000 Ml) 1,000 mls @ 150 mls/hr IV .Q6H40M [facility] Last Admin: 06/23/18 02:43 Dose: 150 mls/hr Morphine Sulfate (Morphine) 2 mg IVP Q4H PRN PRN Reason: Pain, moderate (4-7) Pantoprazole Sodium (Protonix Inj) 40 mg IVP DAILY [facility] Last Admin: 06/23/18 10:20 Dose: 40 mg - Labs Labs: 06/22/18 07:00 06/22/18 07:00 - Constitutional Appears: Well, Non-toxic, No Acute Distress - Head Exam Head Exam: ATRAUMATIC, NORMOCEPHALIC - Eye Exam Eye Exam: EOMI - ENT Exam ENT Exam: Mucous Membranes Moist - Respiratory Exam Respiratory Exam: NORMAL BREATHING PATTERN - Cardiovascular Exam Cardiovascular Exam: REGULAR RHYTHM - GI/Abdominal Exam GI & Abdominal Exam: Soft, Tenderness (mild RUQ/ epigastric). absent: Distended, Guarding - Extremities Exam Extremities Exam: absent: Calf Tenderness, Pedal Edema - Neurological Exam Neurological Exam: Alert, Awake, Oriented x3 - Psychiatric Exam Psychiatric exam: Normal Affect, Normal Mood - Skin Skin Exam: Dry, Intact, Normal Color, Warm Assessment and Plan - Assessment and Plan (Free Text) Assessment: 52 yr old female with colitis possibly infectious d/t recent travel Plan: ADvance diet as per GI recs c/w abx per ID recs c/w pain control c/w IVF per primary team recs c/w Protonix d/t hx of PUD no surgical intervention needed at this time will discuss with Dr. Seymour Rooney, PGY 1
[2018-06-23 11:11] LABS: ALB/GLOB RATIO 1.1 (1.1-1.8); ALBUMIN 3.7 g/dL (3.0-4.8); ALT/SGPT 30 U/L (7-56); AST/SGOT 22 U/L (14-36); BLOOD UREA NITROGEN 5 mg/dL (7-21); CALCIUM 8.3 mg/dL (8.4-10.5); GFR NON-AFRICAN AMERICAN > 60
--- NOTE | 2018-06-23 16:57 | CP.PCM.PN ---
Subjective - Date & Time of Evaluation Date of Evaluation: 06/23/18 Time of Evaluation: 11:30 - Subjective Subjective: Feeling better, no fevers, not in distress, less LBM. Objective - Vital Signs/Intake and Output Vital Signs (last 24 hours): Temp Pulse Resp BP Pulse Ox 98.7 F 63 20 109/66 96 06/22/18 07:00 06/22/18 07:00 06/22/18 07:00 06/22/18 07:00 06/22/18 07:00 Intake and Output: 06/22/18 06/22/18 06:59 18:59 Intake Total 1200 Balance 1200 - Medications Medications: Current Medications Acetaminophen (Tylenol 325mg Tab) 650 mg PO Q6H PRN PRN Reason: Fever >100.4 F Last Admin: 06/21/18 21:10 Dose: 650 mg Metronidazole (Flagyl) 500 mg in 100 mls @ 100 mls/hr IVPB Q8 [facility]; Protocol Last Admin: 06/22/18 05:32 Dose: 100 mls/hr Ceftriaxone Sodium (Rocephin 1 Gram Ivpb) 1 gm in 100 mls @ 100 mls/hr IVPB DAILY [facility]; Protocol Last Admin: 06/22/18 09:40 Dose: 100 mls/hr Dextrose/Sodium Chloride (Dextrose 5%/0.45% Ns 1000 Ml) 1,000 mls @ 150 mls/hr IV .Q6H40M [facility] Last Admin: 06/22/18 05:30 Dose: 150 mls/hr Potassium Chloride (Potassium Chloride 10 Meq/100 Ml) 10 meq in 100 mls @ 50 mls/hr IVPB Q2H [facility] Stop: 06/22/18 12:44 Last Admin: 06/22/18 09:41 Dose: 50 mls/hr Potassium Chloride (Potassium Chloride 10 Meq/100 Ml) 10 meq in 100 mls @ 50 mls/hr IVPB Q2H [facility] Stop: 06/22/18 14:44 Morphine Sulfate (Morphine) 2 mg IVP Q4H PRN PRN Reason: Pain, moderate (4-7) Pantoprazole Sodium (Protonix Inj) 40 mg IVP DAILY [facility] Last Admin: 06/22/18 09:40 Dose: 40 mg - Labs Labs: 06/22/18 07:00 06/22/18 07:00 - Constitutional Appears: Chronically Ill - Head Exam Head Exam: NORMAL INSPECTION - Respiratory Exam Respiratory Exam: Decreased Breath Sounds - Cardiovascular Exam Cardiovascular Exam: +S1, +S2 - GI/Abdominal Exam GI & Abdominal Exam: Soft. absent: Tenderness Assessment and Plan - Assessment and Plan (Free Text) Plan: Assessment right sided acute colitis, probably infections, consider bacterial etiology (ie. Salmonella) HTN peptic ulcer disease with H. pylori morbid obesity with BMI 40 S/P tubal ligation S/P hysterectomy Plan continue Rocephin and Flagyl day 2 and will follow up blood cx, stool cx, stool leukocytes; stool for C. diff. is negative will continue to monitor clinically will get HIV test due to her age
--- NOTE | 2018-06-23 22:12 | PN ---
DATE: 06/23/2018 SUBJECTIVE: The patient is 52-year-old, seen and examined, seems to be doing well. Complained of rectal discomfort because of hemorrhoid, not too bleeding. Still has diarrhea, on clear liquid diet, does not have . PHYSICAL EXAMINATION: VITAL SIGNS: She is afebrile. Pulse 60, respirations 18, blood pressure 133/82. LUNGS: Bilateral fair airflow. No rhonchi or crackles. HEART: S1 and S2 audible. ABDOMEN: Soft and nontender. No rebound. No guarding. NEUROLOGIC: Patient is awake, alert, oriented, communicative. LABORATORY DATA: WBC 7.5, hemoglobin 13, hematocrit 39.6, and platelets 249. Chemistry, sodium 140,potassium 3.4, chloride 103, CO2 of 65, creatinine 0.6. Blood sugar 198. ASSESSMENT: 1. Gastroenteritis. 2. Segmental colitis. 3. Hypokalemia. 4. Dehydration. PLAN: We will continue the patient on IV fluids. She is getting rectal suppository. Continue her on Protonix and Lyrica as needed. Currently, she is on Flagyl and Rocephin. Follow up her electrolytes in the a.m. Kesha Sparks MD
[2018-06-24] MEDS: metroNIDAZOLE IV 500 mg/100 ml 500 MG/100 ML BAG IVPB SCH ×3 (05:22→21:57)
[2018-06-24 07:37] LABS: BASO # 0.02 K/mm3 (0.0-2.0); BASO % 0.4 % (0.0-3.0); EOS # 0.2 (0.0-0.7); EOS % 2.8 % (1.5-5.0); GRAN # 2.76 (1.4-6.5); GRAN % 51.8 % (50.0-68.0); HEMOGLOBIN 13.1 g/dL (12.0-16.0); LYMPH % 37.1 % (22.0-35.0); MEAN CELL VOLUME 87.6 fl (80.0-105.0); MEAN CORPUSCULAR HGB CONC 34.3 g/dl (31.0-37.0); MEAN PLATELET VOLUME 8.6 fl (7.0-11.0); MONO # 0.4 (0.1-0.6); MONO % 7.9 % (1.0-6.0); RBC 4.36 10^6/uL (3.5-6.1); WHITE BLOOD COUNT 5.3 10^3/uL (4.5-11.0)
[2018-06-24 07:57] LABS: ALB/GLOB RATIO 1.1 (1.1-1.8); ALBUMIN 3.8 g/dL (3.0-4.8); ALT/SGPT 29 U/L (7-56); AST/SGOT 24 U/L (14-36); BLOOD UREA NITROGEN 5 mg/dL (7-21); CALCIUM 8.7 mg/dL (8.4-10.5); GFR NON-AFRICAN AMERICAN > 60
--- NOTE | 2018-06-24 08:09 | PN ---
DATE: 06/23/2018 SUBJECTIVE: I saw Mrs. Mg this morning. She is a 52-year-old female here with complaints of nausea, vomiting, abdominal pain, and diarrhea, probably secondary to the gastroenteritis with component of traveler's diarrhea. The patient has made progress since yesterday on her current regimen, which includes antibiotics in the form of ceftriaxone and metronidazole. The patient's abdominal distention is decreased. Nausea is less. She denies hematemesis or rectal bleeding. Note that with intake of small volumes of clear liquid, the patient is still experiencing some cramping with urgency in bowel movements directly afterward. Pain level this morning dimunitive except when she has something orally. PHYSICAL EXAMINATION: VITAL SIGNS: I reviewed this patient's vital signs. HEENT: Noncontributory. LUNGS: Clear to auscultation. HEART: Regular rate and rhythm. ABDOMEN: Protuberant and soft. Decreased tenderness substantially in the epigastric area and left upper quadrant. There is very mild fullness in the right lower quadrant, but the tenderness is minimal as well as in the periumbilical area and the other quadrants. LABORATORY DATA: I reviewed this patient's laboratory data. Notes from Dr. Marley and pertinent labs were also reviewed. According to Dr. Kim's notes, they suggest possible bacterial etiology for colitis that we have discussed previously. They suggest just continuing on Rocephin regimen, which she has been on. Note that orders for C. diff as well as stool and blood culture are pending and that the antibiotics were started while the patient was in the emergency room. ASSESSMENT: This is a 52-year-old female visiting [facility] who ate some local food in addition to standard hotel food. The patient presented with symptoms listed above roughly 2 days after return from [facility]. Differential diagnosis includes gastroenteritis with possibly component of traveler's diarrhea. The patient has made significant progress on current antibiotics, we will continue the same and our cultures are currently pending. At the current time point, we will maintain our diet on clear liquids for both breakfast and dinner because of the cramping issue noted above. If she progresses throughout the day in improvement, then she may consider trying a full liquid diet at dinner tonight. I discussed this with nurse on the floor. Yunior Bravo DO, Guillermo # [id number] HILARY
--- NOTE | 2018-06-24 08:46 | HP ---
DATE OF EXAM: 06/21/2018 HISTORY OF PRESENT ILLNESS: The patient is a 52-year-old female who woke up this morning and was having right upper quadrant pain that started on early this morning. She says then, she had multiple episodes of diarrhea. She complained of having chills and fever, but no documented vomiting. No history of chest pain. No shortness of breath. Complained of decreased appetite. Does have headache. PAST MEDICAL HISTORY: Significant for: 1. Asthma, but it is stable. 2. History of gastritis, takes stomach pill off and on. SURGICAL HISTORY: Significant for hysterectomy and tubal ligation. ALLERGIES: SHE IS ALLERGIC TO ASPIRIN. MEDICATIONS AT HOME: She is on Flonase and Clarinex off and on, and she takes hydrochlorothiazide 12.5 daily. 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 She used to smoke heavily before, but quit lately. PHYSICAL EXAMINATION GENERAL: She is awake and alert, comfortable. VITAL SIGNS: She has temperature of 102.4, pulse 120, respirations 18, blood pressure 126/62. LUNGS: Bilateral fair airflow. No rhonchi or crackle. HEART: S1, S2 audible. ABDOMEN: Soft, obese. Has right upper and mid-quadrant pain. No rebound. No guarding. NEUROLOGICAL: She is awake, alert, oriented, communicative. LABORATORY EXAM: WBC is 9.9, hemoglobin 14, hematocrit 42, platelets 262. Chemistry: Sodium 138, potassium 3.9, chloride 104, CO2 of 26, BUN 13, creatinine 0.7, blood sugar of 105. Urine shows small blood. Flu test is negative. CT scan of the abdomen and pelvis was done that shows right colon wall thickening, consistent with colitis. No evidence of appendicitis, cholecystitis, or pancreatitis. X-ray of chest is unremarkable. ASSESSMENT: 1. Acute colitis. 2. Fever, but no leukocytosis. 3. History of asthma, but stable. PLAN: We will keep the patient n.p.o. We will give her IV fluid, IV antibiotic, and IV Protonix. GI consult by Dr. Bravo has been requested. Followup on electrolyte and CBC in a.m. Kesha Sparks MD
[2018-06-24] MEDS: cefTRIAXone 1 gm 1 GM/100 ML BAG IVPB SCH (09:54)
[2018-06-24] MEDS: Hydrocortisone 2.5% Rectal Cream(30 gm) PR SCH ×2 (11:34→17:41)
[2018-06-24] MEDS: Dextrose 5%/0.45% NS 1,000 ML IV SCH (11:35)
[2018-06-24] MEDS ORDERED: Potassium Chloride 20 mEq ER Tab PO ONE (12:12)
[2018-06-24] MEDS ORDERED: Dextrose 5%/0.45% NS 1,000 ML IV SCH (12:15)
--- NOTE | 2018-06-24 12:56 | CP.PCM.PN ---
Subjective - Date & Time of Evaluation Date of Evaluation: 06/24/18 Time of Evaluation: 09:40 - Subjective Subjective: Afebrile, comfortable, abdominal pain is much improved, no more diarrhea. No fevers overnight. Objective - Vital Signs/Intake and Output Vital Signs (last 24 hours): Temp Pulse Resp BP Pulse Ox 98.3 F 74 20 103/71 98 06/23/18 08:29 06/23/18 08:29 06/23/18 08:29 06/23/18 08:29 06/23/18 08:29 - Medications Medications: Current Medications Acetaminophen (Tylenol 325mg Tab) 650 mg PO Q6H PRN PRN Reason: Fever >100.4 F Last Admin: 06/21/18 21:10 Dose: 650 mg Hydrocortisone (Anusol-Hc) 0 gm NE BID [facility] Last Admin: 06/23/18 10:00 Dose: Not Given Hydrocortisone (Anusol-Hc) 25 mg RC Q12 [facility] Last Admin: 06/23/18 10:31 Dose: 25 mg Metronidazole (Flagyl) 500 mg in 100 mls @ 100 mls/hr IVPB Q8 [facility]; Protocol Last Admin: 06/23/18 14:59 Dose: 100 mls/hr Ceftriaxone Sodium (Rocephin 1 Gram Ivpb) 1 gm in 100 mls @ 100 mls/hr IVPB DAILY [facility]; Protocol Last Admin: 06/23/18 10:21 Dose: 100 mls/hr Dextrose/Sodium Chloride (Dextrose 5%/0.45% Ns 1000 Ml) 1,000 mls @ 150 mls/hr IV .Q6H40M [facility] Last Admin: 06/23/18 02:43 Dose: 150 mls/hr Potassium Chloride (Potassium Chloride 10 Meq/100 Ml) 10 meq in 100 mls @ 50 mls/hr IVPB Q2H [facility] Stop: 06/23/18 20:59 Morphine Sulfate (Morphine) 2 mg IVP Q4H PRN PRN Reason: Pain, moderate (4-7) Pantoprazole Sodium (Protonix Inj) 40 mg IVP DAILY [facility] Last Admin: 06/23/18 10:20 Dose: 40 mg - Labs Labs: 06/22/18 07:00 06/23/18 10:20 - Constitutional Appears: Chronically Ill - Head Exam Head Exam: NORMAL INSPECTION - Respiratory Exam Respiratory Exam: Decreased Breath Sounds - Cardiovascular Exam Cardiovascular Exam: +S1, +S2 - GI/Abdominal Exam GI & Abdominal Exam: Soft. absent: Tenderness Assessment and Plan - Assessment and Plan (Free Text) Plan: Assessment right sided acute colitis, probably infections, consider bacterial etiology (ie. Salmonella) HTN peptic ulcer disease with H. pylori morbid obesity with BMI 40 S/P tubal ligation S/P hysterectomy Plan continue Rocephin and Flagyl day 3 and will follow up blood cx, stool cx, stool leukocytes; stool for C. diff. is negative will continue to monitor clinically follow up HIV test due to her age
--- NOTE | 2018-06-24 13:35 | PN ---
DATE: 06/24/2018 SUBJECTIVE: I saw Mrs. Mg this morning. She is a 52-year-old female, admitted with components of nausea, vomiting, abdominal pain, diarrhea, which started roughly two days after travel to [facility]. Signs, symptoms, history suggestive of gastroenteritis with a component of traveler's diarrhea. She has made progress on her current regimen which includes antibiotics, IV fluids, antiemetics and PPI. Initially severe pain in the epigastric area, left upper quadrant, rated as 10/10, has dissipated. The abdomen is less distended. However, the patient still has urgency and some small degree of cramping with oral intake of fluids. PHYSICAL EXAMINATION GENERAL: I reviewed the vital signs. HEENT: Noncontributory. LUNGS: Clear to auscultation. HEART: Regular rhythm. ABDOMEN: Soft, mildly tender in the periumbilical area at above the umbilicus. There is no tenderness in the epigastric as well as left upper quadrant. Right lower quadrant and the right paraumbilical noncontributory. Left upper and left lower quadrants noncontributory as well. LABORATORY DATA: Indicates C. diff toxin and the antigen both negative, and other cultures negative. Reviewed her other labs yesterday. H and H this morning stable, white count 5.3. There is mild decrease in potassium. labs are pending. Yesterday potassium was 3.4. I reviewed the progress notes with Dr. Kim as well as Dr. Sparks. ASSESSMENT AND PLAN: This is a 52-year-old female here with signs and symptoms of gastroenteritis with a traveler's diarrhea component. The patient has improved dramatically over the past couple of days. No evidence of hematemesis, rectal bleeding, nausea, vomiting right now. Abdomen is not distended. Epigastric pain improved. She is still experiencing some cramping, but then have to expect this because this is probably hypersensitivity type of an issue being related to the colon after a gastroenteritis issue. This is more suggestive of an irritable bowel syndrome rather than acute type of colitis. The patient currently is on a liquid diet. We can start to advance diet to small portions of soft. One may consider her a possible candidate to go home today. Wouldl continue antibiotic therapy in the oral form for another few days as per Infectious Disease input if goes home. Note that all cultures are negative as far as labs here are concerned. If the patient goes home, I advised the patient to advance diet very slowly as far as she can tolerate. She will be followed up by Dr. Kim and Dr. Marx or Dr. Sparks later on this morning. Discharge disposition will be at their discretion. Yunior Bravo DO, PhD MTDD
--- NOTE | 2018-06-24 23:59 | PN ---
DATE: 06/24/2018 SUBJECTIVE: The patient is 52-year-old, seen and examined, doing well. She has only one bowel movement since morning. Abdominal pain has almost gone, tolerating clear liquid diet that has been advanced to full liquid. PHYSICAL EXAMINATION: VITAL SIGNS: She is afebrile. Pulse 64, respirations 20, and blood pressure 135/87. LUNGS: Bilateral fair airflow. No rhonchi or crackles. HEART: S1 and S2 audible. ABDOMEN: Soft, slight right upper quadrant discomfort. NEUROLOGIC: She is awake, alert, oriented, and communicative. LABORATORY DATA: WBC 5.3, hemoglobin 13, hematocrit 38, and platelets 265. Chemistry, sodium 141,potassium 4.6, chloride 108, CO2 of 26, BUN 5, and creatinine 0.6. Blood sugar of 96. ASSESSMENT: 1. Gastroenteritis. 2. Segmental colitis. 3. Asthma, stable. 4. Status post hysterectomy. 5. Hypokalemia. PLAN: We will decrease IV fluids. She is tolerating p.o. fluids pretty well, and we will continue metronidazole, continue Rocephin. We will follow up the patient in a.m. Kesha Sparks MD
[2018-06-25] MEDS: metroNIDAZOLE IV 500 mg/100 ml 500 MG/100 ML BAG IVPB SCH ×2 (05:02→13:30)
[2018-06-25] MEDS ORDERED: Potassium Chloride 20 mEq ER Tab PO SCH (08:00)
[2018-06-25 08:24] VITALS: RESP 18; O2SAT 96
[2018-06-25] MEDS: Hydrocortisone 2.5% Rectal Cream(30 gm) PR SCH (09:48)
[2018-06-25] MEDS: cefTRIAXone 1 gm 1 GM/100 ML BAG IVPB SCH (09:49)
--- NOTE | 2018-06-25 10:23 | PN ---
DATE: 06/25/2019 SUBJECTIVE: I saw Mrs. Mg this morning. She is a 52-year-old female, admitted with complaints of nausea, vomiting, abdominal pain, diarrhea, probably secondary to combination of gastroenteritis with a traveler's diarrhea component. At bedside this morning, the patient indicates no abdominal pain, bowel movement one as of yesterday. Denies hematemesis or rectal bleeding. She is handling her meals without problems. PHYSICAL EXAMINATION GENERAL: I reviewed this patient's vital signs. HEENT: Noncontributory. LUNGS: Clear to auscultation. HEART: Regular rhythm. ABDOMEN: Soft. No tenderness elicited. There is no abdominal distention. Bowel sounds are improved. No pain elicited in any quadrant. LABORATORY DATA: I reviewed the notes of Dr. Sparks and Dr. Kim. Laboratory data indicates the cultures are negative. I reviewed the laboratory data. ASSESSMENT: This is a 52-year-old female, admitted with complaints of gastroenteritis with a traveler's diarrhea component. The patient has done well with current regimen which consists of Rocephin and metronidazole. If the patient is discharged today, would suggest at least another few days of antibiotics for a total of 10 as per recommendations of Infectious Disease. Note that all cultures prove to be negative including Clostridium difficile. The patient apparently tried increasing diet consistency yesterday with no complaints. She has no abdominal pain. The patient will be followed up by Dr. Kim and Dr. Sparks later on this morning. We might consider discharging the patient today with the advice of very strict dietary discretion, at least over the next week to 10 days. She may have a transient lactose intolerance component which she was advised of at the bedside. She also must practice antireflux precautions. Diet consistency will be advanced. I will sign off the case today. Yunior Bravo DO, PhD Job # [id number] [facility]
[2018-06-25 14:58] VITALS: BP 130/78; PULSE 65; TEMP 98.2
--- NOTE | 2018-06-25 15:56 | CP.PCM.PN ---
Subjective - Date & Time of Evaluation Date of Evaluation: 06/25/18 Time of Evaluation: 08:45 - Subjective Subjective: No fever, no abdominal pain, not in distress. No more abdominal pain, diarrhea is improved. Objective - Vital Signs/Intake and Output Vital Signs (last 24 hours): Temp Pulse Resp BP Pulse Ox 98.2 F 63 20 114/71 95 06/24/18 06:00 06/24/18 06:00 06/24/18 06:00 06/24/18 06:00 06/24/18 06:00 Intake and Output: 06/24/18 06/24/18 06:59 18:59 Intake Total 620 Balance 620 - Medications Medications: Current Medications Acetaminophen (Tylenol 325mg Tab) 650 mg PO Q6H PRN PRN Reason: Fever >100.4 F Last Admin: 06/21/18 21:10 Dose: 650 mg Hydrocortisone (Anusol-Hc) 0 gm OR BID [facility] Last Admin: 06/24/18 11:34 Dose: Not Given Hydrocortisone (Anusol-Hc) 25 mg RC Q12 [facility] Last Admin: 06/24/18 09:54 Dose: 25 mg Metronidazole (Flagyl) 500 mg in 100 mls @ 100 mls/hr IVPB Q8 [facility]; Protocol Last Admin: 06/24/18 05:22 Dose: 100 mls/hr Ceftriaxone Sodium (Rocephin 1 Gram Ivpb) 1 gm in 100 mls @ 100 mls/hr IVPB DAILY [facility]; Protocol Last Admin: 06/24/18 09:54 Dose: 100 mls/hr Dextrose/Sodium Chloride (Dextrose 5%/0.45% Ns 1000 Ml) 1,000 mls @ 75 mls/hr I V .[id number] [facility] Morphine Sulfate (Morphine) 2 mg IVP Q4H PRN PRN Reason: Pain, moderate (4-7) Pantoprazole Sodium (Protonix Inj) 40 mg IVP DAILY [facility] Last Admin: 06/24/18 09:53 Dose: 40 mg - Labs Labs: 06/24/18 07:10 06/24/18 07:10 - Constitutional Appears: No Acute Distress - Head Exam Head Exam: NORMAL INSPECTION - Respiratory Exam Respiratory Exam: Decreased Breath Sounds - Cardiovascular Exam Cardiovascular Exam: +S1, +S2 - GI/Abdominal Exam GI & Abdominal Exam: Soft. absent: Tenderness Assessment and Plan - Assessment and Plan (Free Text) Plan: Assessment right sided acute colitis, probably infectious consider bacterial etiology HTN peptic ulcer disease with H. pylori morbid obesity with BMI 40 S/P tubal ligation S/P hysterectomy Plan continue Rocephin and Flagyl day 4 and can switch to PO Vantin and Flagyl for another 3-5 days; stool for C. diff. is negative and cultures have been negative will continue to monitor clinically follow up HIV test due to her age
--- NOTE | 2018-06-25 19:14 | DS ---
HISTORY OF PRESENT ILLNESS: The patient is a 52-year-old, states she went to [facility]. She has been doing well over there, but at the end when she was coming back on her way, she had some street food, by the time she reached, she was having abdominal discomfort, diarrhea and abdominal pain. She tried to not eat or drink, but she has perfused diarrhea, felt very weak, so she came to the ER. Had CT of the abdomen and pelvis done that shows ascending and transverse colitis, so the patient was kept n.p.o., was given IV fluid and IV antibiotic. Stool for C. diff negative. Stool cultures were negative. She remained on IV Cipro and Flagyl, did well. She had one bowel movement since morning, so she is being discharged home today on p.o. Cipro and Flagyl. PHYSICAL EXAMINATION: GENERAL: Today, she is awake, alert, oriented, and communicative. VITAL SIGNS: She is afebrile. Pulse 65, respirations 18, and blood pressure 130/78. LUNGS: Bilateral fair airflow. No rhonchi or crackles. HEART: S1 and S2 audible. ABDOMEN: Soft, nontender. No rebound. No guarding. NEUROLOGIC: The patient is awake, alert, oriented, communicative and ambulatory. ASSESSMENT AND PLAN: 1. Status post gastroenteritis. 2. Ascending and transverse colitis. 3. Hypertension. 4. Electrolyte imbalance. PLAN: The patient is being discharged home on p.o. Flagyl and Cipro for three more days. She is advised to stay on liquid and soft diet. She will be back to work on Sunday. Kesha Sparks MD
== END 2018-06-25 16:33 | disposition home or self-care (01) | DRG 392 ==
LOC: ED 12:26 → ERH 15:54 → 5RSO 18:09 → OBSVTOIN 06-22 19:36 → 5RSO 06-24 17:25
PROVIDERS: ADMIT Internal Medicine; ATTEND Internal Medicine
DX: K52.9 Noninfective gastroenteritis and colitis, unspecified (principal); Z68.41 Body mass index [BMI] 40.0-44.9, adult; E87.6 Hypokalemia; E86.0 Dehydration; I10 Essential (primary) hypertension; E66.01 Morbid (severe) obesity due to excess calories; J45.909 Unspecified asthma, uncomplicated; K21.9 Gastro-esophageal reflux disease without esophagitis; K29.70 Gastritis, unspecified, without bleeding; K27.9 Peptic ulcer, site unspecified, unspecified as acute or chronic, without hemorrhage or perforation; K64.9 Unspecified hemorrhoids; Z87.891 Personal history of nicotine dependence; Z85.41 Personal history of malignant neoplasm of cervix uteri; Z86.010 Personal history of colon polyps; Z88.6 Allergy status to analgesic agent

== ENCOUNTER 2018-07-24 07:20 | Outpatient (CLI) | payer OTHER | END 2018-07-24 07:21 | disposition home or self-care (01) | LOC: LAB 07:20 ==

== ENCOUNTER 2018-08-28 07:46 | Outpatient (CLI) | payer OTHER | END 2018-08-28 07:47 | disposition home or self-care (01) | LOC: LAB 07:46 ==